=== PATIENT | male | born 1965 | race Caucasian/White ===

== ENCOUNTER 2023-05-15 16:55 | Emergency (ER) | payer BC, SELFPAY ==
[2023-05-15 16:57] VITALS: BP 136/107; PULSE 72; RESP 20; TEMP 36.8; O2SAT 98
--- NOTE | 2023-05-15 18:09 | ED.GENADUL_ITS ---
Discharge Plan Disposition Patient Disposition: Home Condition: Stable Discharge Details Clinical Impression: Cut of lower extremity Primary Care Provider: Spencer Gaspar ED Provider: Chika Knox Home Meds and New Rx's Prescriptions: New cephalexin 500 mg capsule 500 mg PO QID Qty: 20 0RF Discharge Instructions Instructions: Laceration (DC) Additional Instructions: Keep wound clean and dry for the first 24 hours then can remove dressing and wash daily with warm soapy water pat dry gently apply thin layer bacitracin ointment and dry dressing to protect You can use acetaminophen 650 mg 4 times daily with food if needed for pain can add ibuprofen 600 mg 4 times daily with food in between for breakthrough pain Please follow-up with general surgeon for wound care and further dressing recommendations. Your tetanus has been updated You will be given an antibiotic to help prevent infection but still monitor for increased pain drainage surrounding redness or fever. You have 12 interrupted simple sutures to close your wound this should be removed in 10 to 14 days or as directed by Stand Alone Forms: Work Release Referrals: Spencer Gaspar MD [Primary Care Provider] - (Please call primary care provider or general surgeon for wound check and further wound recommendations this week. Return to the emergency department sooner for new or worsening symptoms) Discharge Data Discharge Date/Time-TO BE ENTERED AT DEPARTURE: 05/15/23 18:38 Medical Decision Making Area anesthetized using lidocaine with epi and bupivacaine. Irrigated with copious amounts of normal saline. Laceration closed using simple interrupted sutures using 3-0 Ethilon material #12 stitches placed. His wound closed easily. Prior to closure wound bed examined no debris or foreign body. Wound edges are approximated but jagged. Xeroform sterile gauze and dressing applied using Sam wrap. Tetanus is updated. HPI General Mode of arrival: wheelchair . Date/Time Provider Initiated Documentation: 05/15/23 17:06 . Limitations to Documentation: no limitations . Information obtained by: patient . HPI Narrative: Patient sustained a laceration to the anterior left lower extremity while jumping from a boat onto a dock scraped the front of his leg on the metal decking on the front. Sustained a 5 cm x 5 cm V shaped laceration. Significant bleeding at the scene. Tetanus is not up-to-date. No other injury. Related Data Home Medications Medication Instructions Recorded Confirmed cephalexin 500 mg capsule 500 mg PO QID #20 caps 05/15/23 Previous Rx's Medication Instructions Recorded cephalexin 500 mg capsule 500 mg PO QID #20 caps 05/15/23 Allergies Allergy/AdvReac Type Severity Reaction Status Date / Time No Known Allergies Allergy Unverified 05/15/23 17:03 General Stated Complaint: Laceration NABIL: 3 Review of Systems All systems reviewed & are unremarkable except as noted in HPI and below PFSH All Active Problems (Updated 05/15/23 @ 18:16 by Chika Knox NP) Cut of lower extremity (Acute) Social History Smoking risk assessment performed?: No Substance use type: does not use Exam Const General: cooperative, healthy appearing and no acute distress Nutritional Appearance: overweight Orientation: alert, awake and oriented x3 HENMT Head: normal to inspection, normocephalic and atraumatic Mouth: oral mucosae normal Neck Neck: normal visual inspection, full ROM and nontender Chest Chest: normal inspection of the chest Resp Effort & Inspection: normal respiratory effort Cardio Rate: regular rate Rhythm: regular rhythm Skin Lesions: lesion noted (Anterior left lower extremity 5 x 5 cm V-shaped flap) Neuro General: patient alert, patient awake, patient oriented x3, tone normal and moves all extremities Cognition: normal cognition Speech: speech normal Gait: normal gait Motor: muscle tone normal throughout Extrem General: no pedal edema Left lower extremity: lower leg (Good CSM T's distally laceration is full- thickness) Details: laceration Course Vital Signs Vital signs: Vital Signs Temperature 36.8 C 05/15/23 16:57 Pulse 72 05/15/23 16:57 Respiratory Rate 20 05/15/23 16:57 Blood Pressure 136/107 H 05/15/23 16:57 Pulse Oximetry 98 05/15/23 16:57 Temperature 36.8 C 05/15/23 16:57 Temperature Source Skin 05/15/23 16:57 Pulse 72 05/15/23 16:57 Respiratory Rate 20 05/15/23 16:57 Respiratory Effort Normal, Non-Labored 05/15/23 17:41 Blood Pressure 136/107 H 05/15/23 16:57 Blood Pressure Position Sitting 05/15/23 16:57 Pulse Oximetry 98 05/15/23 16:57 Oxygen Delivery Method Room Air 05/15/23 16:57 Oxygen Flow Rate 0 05/15/23 16:57 Pain Level 10 05/15/23 16:57
[2023-05-15] MEDS: Bupivacaine 0.5% Pres-Free 30 ML VIAL IJ (18:35)
[2023-05-15] MEDS: Lidocaine 1% Pres-Free W/EPI 1/200,000 30 ML VIAL IJ (18:36)
== END 2023-05-15 18:38 | disposition home or self-care (01) ==
PROVIDERS: Emergency Provider Nurse Practitioner Acute Care; PCP Family Medicine
DX: S81.812A Laceration without foreign body, left lower leg, initial encounter (principal); W22.8XXA Striking against or struck by other objects, initial encounter; Y93.39 Activity, other involving climbing, rappelling and jumping off
CPT/HCPCS: 12002; 90471